=== PATIENT | male | born 1940 | race Caucasian/White ===

== ENCOUNTER → 2017-07-16 | Emergency (ER) | payer MEDICARE ==
[~2017-07-16] VITALS: Ht 180.3 cm; Wt 102.1 kg
[~2017-07-16] MED LIST: ATORVASTATIN CA20 MG PO; COLCRYS0.6 MG PO; COUMADIN5 MG PO; COUMADIN7.5 MG PO; DILTIAZEM ER180 MG PO; GLUCOPHAGE500 MG PO; SV GLUCOSAMINE PO; WARFARIN SODIUM5 MG PO; ZESTORETIC 20-1 EACH PO
--- NOTE | 2017-07-17 20:38 | EKG ---
[facility] [address] [place] [address] Signed Atrial fibrillation Prolonged QT Abnormal ECG No previous ECGs available Confirmed by BRANDAN BENSON MD ([id number]) on 07/17/2017 8:38:29 PM Electronically Signed By: BRANDAN BENSON MD 07/17/17 2038 PATIENT NAME: KRYSTIAN SALINAS Electrocardiogram DATE OF : 42 PHYSICIAN: BRANDAN BENSON MD REPORT #: [id number] REPORT IS CONFIDENTIAL AND NOT TO BE RELEASED WITHOUT AUTHORIZATION
== END ==
LOC: ED 21:36
DX: E86.0 Dehydration (principal); I10 Essential (primary) hypertension; I48.91 Unspecified atrial fibrillation; E78.5 Hyperlipidemia, unspecified; Z79.899 Other long term (current) drug therapy; Z79.01 Long term (current) use of anticoagulants; Z79.84 Long term (current) use of oral hypoglycemic drugs
CPT/HCPCS: 71010; 80053; 81001; 84484; 85025; 85610; 93005; 93010; 96361; 96374; 99284; G0480; J2405; J7030

== ENCOUNTER 2017-09-28 10:06 | Emergency (ER) | payer MEDICARE, SELFPAY ==
[~2017-09-28] VITALS: Ht 180.3 cm; Wt 102.1 kg
[2017-09-28] MEDS ORDERED: MESTINON60 MG PO (10:23)
== END 2017-09-28 10:51 | disposition home or self-care (01) ==
LOC: ED 10:06
PROC: 0HQGXZZ Repair Left Hand Skin, External Approach (ICD-10-PCS; principal; 2017-09-28)
DX: S61.412A Laceration without foreign body of left hand, initial encounter (principal); R73.03 Prediabetes; I10 Essential (primary) hypertension; Z87.891 Personal history of nicotine dependence; Z79.01 Long term (current) use of anticoagulants; Z79.84 Long term (current) use of oral hypoglycemic drugs; Z79.899 Other long term (current) drug therapy; X58.XXXA Exposure to other specified factors, initial encounter; Y93.H1 Activity, digging, shoveling and raking
CPT/HCPCS: 12001; 99282

== ENCOUNTER 2022-05-01 16:34 | Inpatient (IN) | payer OTHER, MEDICARE ==
[~2022-05-01] VITALS: Ht 177.8 cm; Wt 93.9 kg
[~2022-05-01 16:34] MED LIST changes: -ATORVASTATIN CA20 MG PO; -COUMADIN5 MG PO; -COUMADIN7.5 MG PO; -GLUCOPHAGE500 MG PO; +HYDROCODON-ACE1 EA10 PO; +JANTOVEN5 MG PO; +JANTOVEN7.5 MG PO; +LEVOTHYROXINE75 MCG PO; +LOVENOX30 MG/0.3; +MESTINON60 MG PO; +METFORMIN HCL500 MG PO; +ONDANSETRON ODT8 MG PO; +PRAVASTATIN SOD40 MG PO
[2022-05-01] MEDS ORDERED: LASIX20 MG PO (21:53)
--- NOTE | 2022-05-01 23:25 | NUR ---
REPORT RECIEVED FROM ER NURSE WILL RN. PATIENT TRANSFERED INDEPENDENTLY TO HOSPITAL BED. LUNGS CLEAR IN UPPER LOBES, DIMINISHED IN THE BASES. ON 4LPM VIA OXYMASK. SKIN INTACT. NO EDEMA NOTED. BOWEL SOUNDS PRESENT. HEART MURRMUR NOTED WITH IRREGULAR HEART RATE AND A-FIB. HR 90'S-100'S. DENIES PAIN OR SOB AT THIS TIME. ORIENTED TO ROOM AND CALL LIGHT. PATIENT VOIDED TO URINAL. EDUCATED ON 60G CARB DIET AND 160ML FLUID RESTRICTION. WRITTEN CHF EDUCATION PROVIDED.
--- NOTE | 2022-05-02 03:45 | NUR ---
PATIENT RESTING IN BED WITH EYES CLOSED. RESPIRATIONS EVEN AND UNLABORED. VS STABLE. CALL LIGHT IN REACH AND BED IN LOW POSITION.
--- NOTE | 2022-05-02 04:32 | NUR ---
PATIENT USED URINAL AT EDGE OF BED. REQUESTED PRN TYLENOL FOR HEADACHE. WATER FILLED.
--- NOTE | 2022-05-02 08:41 | NUR ---
family assessment worker and scheduled medications. Patient is alert, oriented, able to follow commands and converstaion without difficulty. Patient remains quit weak and SOB at times, but states he feels slightly better this morning compared to when he first arrived. Patient remains oxygen decreased to 2L for trial. Patient is on room air at home. Patient able to dangle and sit at edge of bed for breakfast without difficulty. Patient understands fluid restriction and is compliant. Patient denies any needs at this time. Personal items and call light within reach.
--- NOTE | 2022-05-02 09:40 | NUR ---
Completed ambulation test in room. On 2L, patient able to ambulate with minimal shortness of breath for approximately 20 feet. Oxygen turned to RA settings. Within another 20 feet, patient stated he felt short of breath. Patient returned to bed and oxygen increased back to 2L. Patient recovered to baseline before ambulation less than 1 minute and above 92%.
--- NOTE | 2022-05-02 09:53 | NUR ---
Patient educated on purpose/use of incentive spirometer while awake. Patient understands to take a minimum of 10 deep breaths per hour. Patient able to demonstrate use of IS appropriately and is agreeable to plan.
[2022-05-02] MEDS ORDERED: REFRESH TEARS15 ML OU (11:54)
--- NOTE | 2022-05-02 12:00 | NUR ---
SPOKE WITH PATIENT IN ROOM. PATIENT STATES HE IS RECENTLY . LIVES ALONE WITH HIS PET DOG FOR COMPANY. HAS 2 ADULT KIDS IN THE AREA FOR HELP IF NEEDED. HAS GOOD NEIGHBORS ALSO TO CALL IF NEEDED. HAS DME LEFT FROM . HAS RAMP, RAILS AT STEPS, WALKER, WHEELCHAIR, WALK-IN SHOWER WITH SEAT, GRAB BARS. IS NOT CONCERNED REGARDING COST OF MEDS/FOOD/UTILITIES. IS ON A PROGRAM FOR HEAT COST, HAS SNAP BENEFITS. HE STATES HE WILL PROBABLY LOOSE HIS SNAP WITH GONE, BUT ISN'T WORRIED ABOUT IT. PATIENT DRIVES. DROVE TO HOSPITAL. FAMILY OR NEIGHBORS CAN HELP WITH RIDES IF NEEDED. HE CANNOT THINK OF ANYTHING HE MAY NEED AT THIS TIME. WILL FOLLOW NEEDED.
[2022-05-02] MEDS ORDERED: LASIX20 MG PO (12:01)
--- NOTE | 2022-05-02 12:01 | NUR ---
Patient was able to eat lunch and remain within fluid restriction without difficulty. Increasing metoprolol dosage per Dr. Vines. Patient does well with IS and does this on his own without prompting. Lasix dosage given as well. Patient denies pain or any needs at this time. Personal items and call light within reach.
--- NOTE | 2022-05-02 12:04 | NUR ---
MED REC COMPLETE
--- NOTE | 2022-05-02 13:06 | NUR ---
Patient ambulated to bathroom for BM without oxygen. Oxygenation dropped to 83%. Patient placed back on 2L and recovered above 90% within less than 1 minute. Patient stated he did get winded walking from the bathroom back to bed.
--- NOTE | 2022-05-02 14:03 | NUR ---
Patient is resting comfortably in bed. Patient denies needs at this time. Personal items and call light within reach.
--- NOTE | 2022-05-02 16:19 | NUR ---
Patient resting comfortably in bed watching tv. Patient urine output is good given lasix pushes throughout day. Patient denies needs at this time. Personal items and call light within reach.
--- NOTE | 2022-05-02 18:01 | NUR ---
Patient has remained on oxygen today, but has been able to lower from 3L to 2L. Patient continues to require oxygen as he goes into the low to mid 80s on multiple room air trials. After ambulation, patient complains of shortness of breath, but again returns to baseline less than 1 minutes once at rest with 2L.
--- NOTE | 2022-05-02 20:21 | NUR ---
PATIENT REPORTS FEELING WORSE THIS EVENING. HE ENDOURSES NAUSEA AND REQUESTED A SLEEP AID. DR BENSON CONTACTED AND ORDERS REVEIVED FOR TRAMADOL. EDUCATED PATIENT ON FLUID RESTRICTION BALANCE. PATIENT VOIDED 350ML IN URINAL. CALL LIGHT IN REACH AND CAN MAKE NEEDS KNOWN.
--- NOTE | 2022-05-02 23:36 | NUR ---
PATIENT SAT UP AT BEDSIDE TO TAKE PO PILLS. REPORTS THE SLEEPING MEDICATIONS HAS REALLY HELPED. PATIENT SEEMS LESS ANXIOUS. VS STABLE. CALL LIGHT IN REACH AND PATIENT CAN MAKE NEEDS KNOWN.
--- NOTE | 2022-05-03 03:31 | NUR ---
PATIENT RESTING IN BED WITH EYES CLOSED. RESPIRATIONS EVEN AN UNLABORED. VS STABLE. CALL LIGHT IN REACH.
--- NOTE | 2022-05-03 06:17 | NUR ---
PATIENT SAT UP IN BED AND TOOK AM MEDS. REPORTS SLEEPING ALOT BETTER LAST NIGHT AND THAT HE FEELS BTTER THIS MORNING. URINAL EMPTIED. CALL LIGHT IN REACH.
--- NOTE | 2022-05-03 06:58 | NUR ---
REPORT RECEIVED FROM NIRU GAINES. AWAITING PTS ARRIVAL TO MED/SURG.
--- NOTE | 2022-05-03 07:30 | NUR ---
PATIENT MOVED TO MS 116, REPORT GIVEN DURING PREVIOUS SHIFT BY NIRU GAINES. NIRU DAY RESUMED CARE ON MS UNIT.
--- NOTE | 2022-05-03 07:49 | NUR ---
PT ARRIVED FROM CCU. PT AMBULATED TO ROOM. PT DENIES PAIN PAIN AND NAUSEA. PT DENIES SHORTNESS OF BREATH WITH AMBULATION TO ROOM. PT ALERT AND OREINTED TO ALL. IV FLUSHED AND SALINE LOCKED PER PROTOCOL, ALCOHOL CAP APPLIED. LUNG SOUNDS CLEAR IN UPPER LOBES, CRACKELS NOTED IN BILATERAL LOWER LOBES, MORE ON RIGHT THAN LEFT SIDE. PT REMAINS ON 2L O2 BY NC. ROOM AIR TRIAL ATTEMPTED, PT DROPS TO 87% ON ROOM AIR. PT MAINTAINING OXYGEN SATURATIONS OF 89-92% ON 2L O2 BY NC. PT DEMONSTRATES USE OF I.S. REACHIGN 1500-1600ML X5. ACAPELLA EDUCATION DONE. PT DEMONSRATES USE X10. TELEMETRY MONITORING SHOWS AFIB RYTHEM, WITH OCCATIONAL PVCs. HEART MURMUR HEARD. HEART RATE IN THE 80'S. NO PERIPHERAL EDEMA NOTED. CHF EDUCATION DONE WITH PT REGARDING RED/YELLOW/GREEN ZONES OF HEART FAILURE. PT VERBALIZES UNDERSTANDING STATING HE IS IN THE "YELLOW" ZONE BUT "ALMOST" TO THE GREEN. MEDCIATION GIVEN. WEIGHT RECORDED. PT REPORTS HE WAS 216 LBS AT HOME PRIOR TO ADMISSION. NO ADDITIONAL NEEDS AT THIS TIME. CALL LIGHT WITHIN REACH. BED RAILS UP. PT SITTING ON EDGE OF BED.
--- NOTE | 2022-05-03 09:55 | NUR ---
THIS RN TO ROOM TO CHECK ON PT. PT RESTING IN BED WATCHING TV. PT DENIES PAIN AND NAUSEA. 200ML CONCENTRATED YELLOW URINE EMPTIED FROM URINAL. PT DENIES ADDITIONAL REQEUSTS OR COMPLAINTS. OXYGEN SATUARTION 97% ON 2L O2 BY NC. CALL LIGHT WITHIN REACH. BED RAILS UP.
--- NOTE | 2022-05-03 11:13 | NUR ---
THIS RN TO ROOM TO CHECK ON PT. PT RESTING IN BED. OXGYEN LEVEL AT 94% ON 2L O2 BY NC. PT VISITING WITH FRIENDS/FAMILY IN THE ROOM. PT DENIES PAIN AND NAUSEA. PT DENIES SHORTNESS OF BREATH. NO ADDITIONAL REQUESTS OR COMPLAINTS. CALL LIGHT WITHIN REACH. BED RAILS UP.
--- NOTE | 2022-05-03 11:32 | NUR ---
THIS RN TO ROOM WITH DR. BENSON FOR ROUNDS. PT FINISHED VISITING WITH FRIENDS AND FAMILY. PT REPORTS HE FEELS BETTER TODAY COMPAIRED TO YESTERDAY. PT REMAINS ON 2L O2 BY NC, WITH OXGYEN SATURATION OF 90%. ROOM AIR TRIAL ATTEMPTED AGAIN, PT ONCE AGAIN DROPS TO 86%. 2L O2 BY NC RESUMED WTIH PT CLIMBING BACK TO 90-93%. PT DENIES ADDITIONAL REQUESTS OR COMPLAINTS TIME. CALL LIGHT WITHIN REACH. BED RAILS UP.
--- NOTE | 2022-05-03 12:19 | NUR ---
MEDICATION DUE. PT SITTING ON EDGE OF BED FINISHING LUNCH. PT DENIES PAIN AND NAUSEA AND SHORTNESS OF BREATH. RESPIRATIONS EVEN AND UNLABORED. OXGYEN SATURATION 93% ON 2L O2 BY NC. MEDICAITON GIVEN. IV FLUSHED AND SALINE LOCKED. AFTERNOON WATER PROVIDED. PT DENIES ADDITIONAL REQUESTS OR COMPLAINTS. CALL LIGHT Nowledge[employer]IN REACH. BED RAILS UP.
--- NOTE | 2022-05-03 13:27 | NUR ---
THIS RN TO ROOM TO CHECK ON PT. PT UP TO AMBULATE IN [place] X2 LAPS. PT STATES "OH I'M DOING A LOT BETTER THAN WHEN I CAME IN." PT REPORTS "VERY LITTLE" SHORTNESS OF BREATH WITH AMBULATION. OXGYEN SATRUATION DROPS TO 86%ON 2L O2 BY NC WTIH AMBULATION WITH HEART RATE INCREASING TO 115. PT RECOVERS ONCE BACK TO ROOM WITH IN 5 MINUTES WITH AFBI RYTHEM IN THE 90'S AND OXYGEN SATUATION OF 94% ON 2L O2 BY NC. 245ML CONCENTRATED YELLOW URINE EMPTIED FROM URINA. NO ADDITONAL REQUESTS OR COMPLAINTS. CALL LIGHT WITHIN REACH. BED RAILS UP. PT SITTING ON EDGE OF BED.
--- NOTE | 2022-05-03 14:45 | NUR ---
AFTERNOON ASSESSMENT DUE. PT RESTING IN BED. REPORTS FEELING TIRED. PT DENIES PAIN AND NASUEA. PT ALERT AND OREITNED TO ALL. PT CONTINUES TO AMBULATE WITH STAND BY ASSIST, PREFERS TO REST AT THIS TIME BUT AGREES TO WALK LATER TODAY. LUNG SOUNDS CLEAR IN LEFT UPPER LOBE WITH CRACKELS NOTES IN BILATERAL LOWER LOBES AND RIGHT UPPER LOBE. PT MAINTAINING OXGYEN SATURATION ABOVE 90% ON 2L O2 BY NC. PT DEMONSRATES USE OF I.S. REACHING 1600ML X5. OXGYENATION IMPROVES TO 96% WITH I.S. USE. PT TOLERATING FLUID RESTRICTION. HEART TONES MILDLY IRREGULAR. AFIB NOTED ON MONITOR WITH HEART RATE IN THE 80'S. ABDOMEN SOFT AND NON TENDER. NO PERIPHERAL EDEMA NOTED. HEART MURMUR UNCHANGED. PT UPDATED ON PLAN OF CARE. NO ADDITIONAL REQUESTS OR COMPLAINTS. CALL LIGHT WITHIN REACH.
--- NOTE | 2022-05-03 16:00 | NUR ---
MEDICATION DUE. THIS RN TO ROOM. PT RESTING IN BED. OXGYEN SATURATION OF 96% ON 2L O2 BY NC. PT REQUESTS TO AMBULATE WITHOUT OXGYEN. PT UP TO AMBUALTE IN [place] X1 LAP ON ROOM AIR. PT DROPS TO 86% ON ROOM AIR BUT STATES "I FEEL SO MUCH BETTER, I WOULD HAVE BEEN HUFFING AND PUFFING BEFORE I CAME IN." PT BACK TO ROOM AND PLACED BACK ON 2L O2 BY NC. OXGYEN SATURATIONS CLIMB TO 92%. ADDITIONAL 225ML OF CLEAR YELLOW URINE EMPTIED. MEDICATION GIVEN. PT DENIES PAIN AND NAUSEA. NO ADDITIONAL REQUESTS OR COMPLAINTS. CALL LIGHT WITHIN REACH. BED RAILS UP.
--- NOTE | 2022-05-03 17:35 | EKG ---
[facility] [address] [place] [address] Signed Atrial fibrillation with rapid ventricular response Nonspecific ST abnormality Abnormal ECG When compared with ECG of 23-FEB-2019 10:23, QT has shortened Confirmed by BRANDAN BENSON MD ([id number]) on 05/03/2022 5:35:41 PM Electronically Signed By: BRANDAN BENSON MD 05/03/22 1735 PATIENT NAME: KRYSTIAN SALINAS Electrocardiogram DATE OF : 42 PHYSICIAN: BRANDAN BENSON MD REPORT #: [id number] REPORT IS CONFIDENTIAL AND NOT TO BE RELEASED WITHOUT AUTHORIZATION
--- NOTE | 2022-05-03 17:38 | NUR ---
MEDICATION DUE. PT FINISHED WITH DINNER. MEDICATION GIVEN. VITAL SIGNS STABLE. PT REMAINS ON 2L O2 BY NC WITH OXYGEN SATURATION OF 90-94%. TELEMETRY DC'D PER MD ORDER. PT DEMONSTRATES USE OF I.S. REACHING 1600ML X5. NO ADDITIONAL REQUESTS OR COMPLAINTS. CALL LIGHT WITHIN REACH. BED RAILS UP.
--- NOTE | 2022-05-03 18:14 | NUR ---
MEDICATION DUE. VARIFIED BY PHARAMCY AND GIVEN PER MD ORDER. PT CONTINUES TO DENY PAIN AND NAUSEA. NO ADDITIONAL REQUESTS OR COMPLAINTS. ICE WATER REFILLED. CALL LIGHT WITHIN REACH. BED RAILS UP.
--- NOTE | 2022-05-03 18:29 | NUR ---
PT HERE FOR NEW ONSET CHF. PT UP IN ROOM INDEPENDANTLY, STEADY ON FEET AND UP TO AMBULATE IN [place] WITH STAND BY ASSIST FOR OXGYEN TANK MANAGEMENT. PT TOLERATING 60G CARB DIET AND 1600ML FLUID RESTRICTION WITH GOOD INTAKE. TELEMETRY MONITORING DC'D THIS SHIFT. METOPROLOL DOSE INCREASED FOR HEART RATE REMAINING IN THE 80-90'S. PT REMAINS ON 2L O2 BY NC, ROOM AIR TRIAL UNSUCESSFUL THIS SHIFT. LUNG SOUNDS SHOW CRACKELS IN LOWER LOBES AND OCCATIONALLY IN RIGHT UPPER LOBE. I.S. USE DEMONSTRATED. PT REPOTS SHORTNESS OF BREATH HAS BEEN IMPROVING. IV LASIX GIVEN THIS SHIFT WITH GOOD OUTPUT. PT DENIES PAIN AND NAUSEA THIS SHIFT. PT USES CALL LIGHT AND MAKES NEEDS KNOWN.
--- NOTE | 2022-05-03 21:30 | NUR ---
PATIENT REQUESTED HS SLEEPING MEDICATION, ADMINISTERED PER MAR. FULL BODY ASSESMENT DONE. PATIENT APPEARS TO BE FOLLOWING FLUID RESTRICTION WELL. NO COMPLAINTS OF PAIN. LUNG SOUNDS NOTED FINE CRACKLES THROUGHOUT. PATIENT USING IS, WAFER FLOATED TO 1600 ML. 93% ON 2L NC.
--- NOTE | 2022-05-04 | NUR ---
PATIENT APPEARS TO BE RESTING WELL. OXYGEN SATURATION 93% ON 2L NC. APPEARS TO BE BREATHING EVEN AND REGULAR.
--- NOTE | 2022-05-04 03:35 | NUR ---
PATIENT CONTINUES TO REST WELL, PROVIDED WARM BLANKET WHILE PATIENT SLEEPING. BREATHING EVEN AND REGULAR. PATIENT NODDED AT ME AND SMILED WITHOUT OPENING HIS EYES. CALL LIGHT WITHIN REACH.
--- NOTE | 2022-05-04 05:00 | NUR ---
PATIENT STOOD AT EDGE OF BED FOR STANDING WEIGHT, PATIENT STEADY ON FEET. PATIENT SITTING AT EDGE OF BED. PATIENT STATES " I DIDN'T SLEEP WELL AT ALL" REASSURED PATIENT THAT THIS NURSE HAD CHECKED ON PATIENT MULTIPLE TIMES. PATIENT GRUNTED, APPEARS ANXIOUS. CALL LIGHT WITHIN REACH.
--- NOTE | 2022-05-04 07:16 | NUR ---
REPORT RECEIVED FROM NIRU HERRON. PT RESTING IN BED ON LEFT SIDE. PT AWAKENS TO MOVEMENT IN THE ROOM. PT DENIES PAIN AND NAUSEA. OXYGEN SATURATION 92% ON 2L O2 BY NC. PT DENIES ADDITIONAL REQUESTS OR COMPLAINTS. CALL LIGHT WITHIN REACH. BED RAILS UP.
--- NOTE | 2022-05-04 09:15 | NUR ---
THIS RN TO ROOM FOR MEDICATION ADMINISTRATION. PT EATING BREAKFAST. PT DECLINES TIME UP TO CHAIR. MEDICAITON GIVEN. PT DENIES PAIN AND NASUEA. OXGYEN SATURATION 92% ON 2L O2 BY NC. NO ADDITIONAL REQUESTS OR COMPLAINTS. CALL LIGHT WITHIN REACH. BED RAILS UP.
--- NOTE | 2022-05-04 09:45 | NUR ---
PATIENT LYING IN BED AFTER MEAL. VITALS AND I/O'S COMPLETED. PT HAS NO OTHER NEEDS AT THIS TIME. CALL LIGHT WITHIN REACH.
--- NOTE | 2022-05-04 09:50 | NUR ---
MORNING ASSESSMENT DUE. PT RESTING IN BED. FINISHED WIHT BREAKFAST. PT ENCOURAGED TO GET UP TO CHAIR. PT DECLINES BUT STATES HE WOULD BE WILLING TO GO FOR A WALKE. PT UP WITH STAND BY ASSIST FOR OXYGEN TANK MANAGEMENT TO AMBULATE DOWN TO MILITARY NURSE DESK AND X1 LAP IN ARROUDN UNIT. PT ABLE TO CARRY ON CONVERSATION WHILE WALKING. PT STATES WAKING WAS "OK, BETTER THAN BEFORE I CAME IN." PT ALERT AN ORIENTD TO ALL. PT DENEIS PAIN AND NAUSEA. LUNG SOUNDS CLEAR BUT FOR MINIMAL CRACKELS IN RIGHT LOWER LOBE. ROOM AIR TRIAL ATTEMPTED AND PT DROPS TO 86% ON ROOM AIR. PT REMAINS ON 2L O2 BY NC. PT DEMONSTRATES USE OF I.S. REACHING 1250ML. NO COUGH NOTED. HEART TONES UNCHANGED WITH MURMUR AND IRREGULAR RATE. VERY MILDY IRREGULAR. HEART RATE IN THE 90'S. PT DEMONSTRATES UNDERSTANDING OF GREEN/YELOW/RED ZONES OF HEART FAILURE BY STATING HE IS IN THE "YELLOW, ALMOST GREEN" ZONE TODAY. PT FILLS OUT RECORD SHEET WITH STAND BY ASSTANCE. PT UP TO CHAIR WITH STAND BY ASSIST. NO ADDITIONAL NEEDS AT THIS TIME. CALL LIGHT WITHIN REACH.
--- NOTE | 2022-05-04 10:04 | NUR ---
PATIENT SITTING UP IN CHAIR AFTER MEAL. VITALS AND I/O'S COMPLETED. PT HAS NO OTHER NEEDS AT THIS TIME. CALL LIGHT IS WITHIN REACH.
--- NOTE | 2022-05-04 10:34 | NUR ---
THIS RN TO ROOM WITH MD FOR ROUNDS. PT REMAINS UP TO CHAIR. PLAN OF CARE REVIEWED WITH PT AND PT VERBALIZES UDNERSTANDING. PT REMAINS ON 2L O2 BY NC WITH OXGYEN SATURATION OF 96% ON 2L O2 BY NC. PT DENIES PAIN AND NAUSEA. NO ADDITIONAL REQUSTS OR COMPLAINTS. CALL LIGHT AND BELONGINGS WITHIN REACH.
--- NOTE | 2022-05-04 11:14 | NUR ---
MEDICATION DUE. THIS RN TO ROOM. PT UP TO CHAIR. DENIES PAIN AND NAUSEA. MEDICATION GIVEN. NO ADDITIONAL REQUESTS OR COMPLAINTS. CALL LIGHT WITHIN REACH.
--- NOTE | 2022-05-04 12:25 | NUR ---
THIS RN TO ROOM TO CHECK ON PT. PT REAMINS UP TO CHAIR. FINISHED WITH LUNCH. PT STATES HE WAS UP TO RESTROOM AND HAD A BOWEL MOVEMENT THAT WAS NORMAL FOR HIM WELL A MISSED VOID. PT DENIES PAIN AND NAUSEA. OXGYEN SATURATION OF 95% ON 2L O2 BY MADAI. REPORT GIVEN TO NIRU OLSEN WHO IS ASSUMING CARE OF PT. PT INTRODUCED TO [facility]. NO ADDITIONAL NEEDS AT THIS TIME. CALL LIGHT WITHIN REACH.
--- NOTE | 2022-05-04 13:18 | NUR ---
PATIENT SITTING WITH GRANDAUGHTER IN CHAIR AFTER MEEAL. VITALS AND I/O'S COMPLETED. CALL LIGHT WITHIN REACH.
--- NOTE | 2022-05-04 14:04 | NUR ---
up in chair, 2LNC, dim lung sounds, coop with assessment. pleasant, alert and orineted. leges up, home soft knee brace R knee. SL patent. no c/o pain. visiting with family.
--- NOTE | 2022-05-04 15:44 | NUR ---
RECEIVED LASIX EARLIER, IN BED EYES CLOSED, O2 2LNC, SPOT CHECKS 92% SATS. CALL LIGHT AT HANDS REACH
--- NOTE | 2022-05-04 17:26 | NUR ---
Pt continues to beon 2LNC O2. Primary RN earlier on shift tried to wean off to room air, failed, low sats and sob, Back on 2L, sats 90-92% when sitting or walking or sleeping. independent in room, 1pa w O2 when ambulating in hallways. tolerated well with O2. gets Lasix IV and received Coumadin 5mg po, voiding QS . coop with fluid restriction. no c/o pain this shift. Home soft R knee brace in place. elevated when up in chair. no c/o R eye pain or vision changes. SL patent. cont w pox, alert oriented, pleasant and coop. uses call light.
--- NOTE | 2022-05-04 20:00 | NUR ---
1899 BEDSIDE REPORT FROM [facility] MARRUFO. 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 PATIENT REQUESTING SLEEPING MEDICATION TO BE ADMINISTERED AT 1999. PATIENT STATED " THAT'S MY BEDTIME AND I REALLY WANT TO GET A GOOD NIGHTS REST" 1999 ADMINISTERED TRAZADONE 25 MG PO PER OCT. FULL BODY ASSESMENT DONE. NOTED CRACKLES AND CORSENESS ON ALL LOBES ON RIGHT SIDE AND CRACKLES IN BASES ON LEFT SIDE. PATIENT APPEARS TO BE FOLLOWING FLUID RESTRICTION WELL. PROVIDED PATIENT WITH 150 ML OF FLUID IN CUP. NO OTHER NEEDS AT THIS TIME. CALL LIGHT WITHIN REACH.
--- NOTE | 2022-05-04 21:00 | NUR ---
INTO ROOM TO CHECK ON PATIENT, PATIENT LAYING SIDEWAYS IN BED WITH OXYGEN OFF. STATES " I WENT TO THE BATHROOM AND FELT VERY DIZZY LIKE I WAS GOING TO PASS OUT" CHECKED BP 93/65, OXYGEN SATURATION 85% ON ROOM AIR. VERBALIZED TO PATIENT THAT HE NEEDS TO HAVE STAFF STBY TO THE BATHROOM, AND TO CALL BEFORE GETTING UP. PATIENT VERBALIZED WILLINGNESS AND UNDERSTANDING. BED ALARM PLACED AND PATIENT PUT ON CPOX ON TELE FOR CLOSER MONITORING. CALL TO DR. BENSON TO NOTIFIY OF INCIDENT. NO NEW ORDERS, CONTINUE TO MONITOR.
--- NOTE | 2022-05-05 00:45 | NUR ---
PATIENTS BED ALARM ALERTED STAFF. PATIENT ASSISTED TO THE BR A SBA. PATIENT DENIED BEING LIGHT HEADED OR DIZZY. PATIENT ABLE TO VOID. PATIENT IS BACK IN BED RESTING. PATIENT IS ON 4L VIA NC. PATIENT DENIES ANY FURTHER NEEDS CALL LIGHT IN REACH. BED ALARM ON FOR SAFETY.
--- NOTE | 2022-05-05 01:25 | NUR ---
PATIENT APPEARS TO BE REMOVING OXYGEN IN SLEEP, SATURATIONS DROP TO 85-88% INTO ROOM TO PLACE OXYGEN BACK ON, CHANGED TO OXIMASK. PATIENT STATES " ARE YOU GOING TO LET ME SLEEP TONIGHT?" REASSURED PATIENT THAT OXYGEN HAS TO STAY IN PLACE TO PROVIDE GOOD OXYGENATION WITH HIS CURRENT ACUTE ILLNESS. PATIENT VERBALIZED UNDERSTANDING AND APPEARED TO CLOSE EYES. BED ALARM ON. CALL LIGHT WITHIN REACH. WITH 2L AND OXIMASK 02 SATURATION 97% NOTED WHEN PATIENT SLEEPING APPEARS TO SNORE LOUDLEY, AND HAVE PERIODS OF APNIC BREATHING. REASSESED OLGA LIDIA SCORE. ON ADMIT OLGA LIDIA SCORE WAS 2, AND NOW WITH REASSEMENT OLGA LIDIA SCORE IS 6.
--- NOTE | 2022-05-05 02:49 | NUR ---
CHECKED PATIENT. PATIENT IS LYING IN BED AWAKEN WHEN THIS ROADWAY TECHNICIAN ENTERED THE ROOM. PATIENT DENIES ANY NEEDS AT THIS TIME. BED ALARM ON PER ACCOUNTING COORDINATOR.
--- NOTE | 2022-05-05 06:10 | NUR ---
PATIENT HAD AN ISOLATED EVENT AFTER ADMINISTRATION OF TRAZADONE PER OCT, WAS UP IN WITHOUT OXYGEN ON AND HAD BECOME DIZZY. PATIENT INSTRUCTED TO CALL BEFORE GETTING UP SO STAFF CAN BE WITH HIM. PATIENT PLACED ON CPOX TELE TO MONITOR OXYGEN SATURATION, PATIENT HAD REMOVED OXYGEN IN SLEEP MULTIPLE TIMES THROUGHOUT NIGHT AND DESAT TO LOW 80% ON RA. PATIENT VERBALIZED FRUSTRATION STATING " I DID NOT SLEEP WELL" VOIDING QUANTITY SUFFICIENT.
--- NOTE | 2022-05-05 07:38 | NUR ---
REPORT FROM BAKARI HERRON RN.
--- NOTE | 2022-05-05 08:36 | NUR ---
PATIENT HAS HAD ECHO DONE THIS MORNING. PATIENT IS SITTING UP AT THE SIDE OF THE BED, DENIES PAIN OR NAUSEA AND IS AWAITING BREAKFAST. PATIENT IS WEARING 2L 02 TO MAINTAIN SATS, AND DENIES HAVING HOME O2. PATIENT WOULD LIKE TO AMBULATE IN THE HALLWAY AFTER BREAKFAST.
--- NOTE | 2022-05-05 11:13 | NUR ---
[place], REGULATORY CONSULTANT, IN TO SEE PATIENT.
--- NOTE | 2022-05-05 11:30 | NUR ---
Notified by Dr. Gonzalez, plan to dc pt today. He will enter an 02 qualifier. My printer is down and Rn will let me know when completed.
--- NOTE | 2022-05-05 11:45 | NUR ---
Certified Heart Failure Nurse Notes: Diagnosis: acute on probable chronic heart failure, Afib, hypertension Rehab Aide - not at this time PCP: Naye Lopez Admit Pro BNP: [id number] Social support system: Spouse this spring. Daughter is supportive and sees patient often. Weight monitoring: Scale present in home. Identifies how to weigh daily/ identifies when to notify PCP Symptom management: Addressed monitoring and reporting changes in weight or symptoms utilizing Zones form. Transportation mode:Drives own car. Can ask neighbors to assist PRN. Diet: Usual meals include home cooked meals, soups for lunch. Recently has been so tired he has been using frozen dinners. He recognizes that those may not be the best option at this time. Dines out several times per week with family. Discussed best types of items to order and eating smaller portions. Demonstrates label reading abilities Tobacco: former Advanced directive: Not discussed at this initial visit Recommendations prior to discharge: Document ambulation oxygen saturations prior to discharge Absence of orthostatic hypotension. Discharge weight less than admit weight. Discharge BNP less than admit (as per [facility] Heart Failure DC Bundle) Barriers to self-care include: Knowledge deficit. Current oxygen saturation. Self-Management Goal: Near term goal is to go to [facility] this week for family visit and fly to see brother on . Follow-up plans: Patient agrees to receive a follow up call from this service. Patient does not currently qualify for cardiac rehabilitation but would be welcome for complimentary outpatient heart failure education. I will call the PCP office to ensure a follow up appointment the week of May 12 since patient is planning on being out of town,if stable, the rest of this week. Pt has [facility] Heart Failure bundle folder-[facility] My Action Plan Living Well with Heart Failure book, Daily weight and symptom monitoring log, Zones magnet Teaching materials given today: [facility] contact information Low Sodium Shopping list. Lower sodium dining list, and better frozen meal options.
--- NOTE | 2022-05-05 13:06 | NUR ---
PATIENT TO HAVE RESPIRATORY HOME O2 QUALIFIER, POSSIBLY D/C HOME TODAY.
--- NOTE | 2022-05-05 14:27 | NUR ---
RT CALLED ABOUT REVIEWING HOME OXYGEN QUALIFIER.
--- NOTE | 2022-05-05 14:30 | NUR ---
Faxed qualifyer to [place] at pts request. Updated, I am awaiting dc summary and will send when completed.
[2022-05-05] MEDS ORDERED: METOPROLOL SUC200 MG PO (14:33)
[2022-05-05] MEDS ORDERED: FUROSEMIDE40 MG PO (14:35)
--- NOTE | 2022-05-05 15:12 | NUR ---
AFTERNOON WARFARIN GIVEN. DISCUSSED EDUCATION ABOUT HOME OXYGEN. PATIENT RESTING IN BED WATCHING TV AND STATES NO ADDITIONAL NEEDS.
--- NOTE | 2022-05-05 15:20 | NUR ---
Called Jeferson from [facility] and updated, [place] best orders are for 02 on pulse as this will make his tanks last longer. Pt needs 02 for activity only. He will deliver the tanks and concentrator in 1/5 hrs. Pt is ok to dc to home on a tank for pulse. Dr. Vines updated and orders written and faxed to [place] with dc summary. Rn notified pt can dc to home and pt put tank on pulse.
== END 2022-05-05 16:33 | disposition home or self-care (01) | DRG 291 ==
LOC: ED 16:34 → CCU 23:06 → MS 05-03 06:24
PROVIDERS: ADMIT Internal Medicine; ATTEND Internal Medicine
DX: I11.0 Hypertensive heart disease with heart failure (principal); I50.33 Acute on chronic diastolic (congestive) heart failure; J96.21 Acute and chronic respiratory failure with hypoxia; I48.21 Permanent atrial fibrillation; J84.9 Interstitial pulmonary disease, unspecified; Z20.822 Contact with and (suspected) exposure to COVID-19; E03.9 Hypothyroidism, unspecified; I08.0 Rheumatic disorders of both mitral and aortic valves; E11.9 Type 2 diabetes mellitus without complications; Z91.040 Latex allergy status; E78.5 Hyperlipidemia, unspecified; Z87.891 Personal history of nicotine dependence; Z79.01 Long term (current) use of anticoagulants; E83.42 Hypomagnesemia; Z79.84 Long term (current) use of oral hypoglycemic drugs; Z79.899 Other long term (current) drug therapy
CPT/HCPCS: 36415; 71045; 71250; 80048; 80053; 83036; 83735; 83880; 84484; 85025; 85610; 87502; 93005; 93010; 93306; 94667; 94668; 94760; 94761; 94762; 96374; 96375; 99285-25; A9270; C9803; J1815; J1940; J2405; J3475; U0003

== ENCOUNTER 2024-04-05 15:12 | Emergency (ER) | payer OTHER, MEDICARE ==
[~2024-04-05] VITALS: Ht 177.8 cm; Wt 97.5 kg
[~2024-04-05 15:12] MED LIST changes: +ALLOPURINOL100 MG PO; +FUROSEMIDE40 MG PO; +LASIX20 MG PO; +METOPROLOL SUC200 MG PO; +REFRESH TEARS15 ML OU
[2024-04-05] MEDS ORDERED: ELIQUIS2.5 MG PO (15:27)
[2024-04-05 16:13] LABS: BASOPHILS 0.9 % (0-2); EOSINOPHILS 0.9 % (0-6); HEMATOCRIT 39.3 % (35.0-50.0); HEMOGLOBIN 13.2 g/dL (12.0-18.0); LYMPHOCYTES 29.6 % (24-44); MCH 32.2 (27-36); MCHC 33.6 g/dl (30-36); MCV 95.9 fl (81-99); MONOCYTES 7.5 % (0-12); NEUTROPHILS 61.1 % (39-80); PLATELET COUNT 158 K/uL (140-440); RDW 14.4 (10.5-15.0)
[2024-04-05 16:35] LABS: ALBUMIN 3.5 g/dL (3.4-5.0); ALBUMIN/GLOBULIN RATIO 1.09 (1.1-2.4); ANION GAP 10.6 (7-21); BILIRUBIN, TOTAL 0.4 ng/dL (0.2-1.0); BUN/CREATININE RATIO 16.07 (6.0-28.6); CALCIUM 8.8 mg/dL (8.5-10.1); CREATININE, SERUM 1.12 mg/dL (0.70-1.30); POTASSIUM 3.6 mmol/L (3.5-5.1); PROTEIN, TOTAL 6.7 g/dL (6.4-8.2)
[2024-04-05 17:05] VITALS: BP 118/75
--- NOTE | 2024-04-06 21:23 | EKG ---
[facility] [address] [place] [address] Signed Atrial fibrillation with a competing junctional pacemaker Right bundle branch block Abnormal ECG When compared with ECG of 01-MAY-2022 17:59, Vent. rate has decreased BY 40 BPM Right bundle branch block is now present Confirmed by Pedro Pablo Bliss MD ([id number]) on 04/06/2024 9:22:54 PM Electronically Signed By: PEDRO PABLO BLISS MD 04/06/[id number] PATIENT NAME: KRYSTIAN SALINAS Electrocardiogram DATE OF : 42 PHYSICIAN: PEDRO PABLO BLISS MD REPORT #: [id number] REPORT IS CONFIDENTIAL AND NOT TO BE RELEASED WITHOUT AUTHORIZATION
== END 2024-04-05 17:05 | disposition home or self-care (01) ==
LOC: ED 15:12
PROVIDERS: Emergency Medicine
DX: I11.0 Hypertensive heart disease with heart failure (principal); I50.9 Heart failure, unspecified; E78.5 Hyperlipidemia, unspecified; I48.91 Unspecified atrial fibrillation; Z79.890 Hormone replacement therapy; Z79.84 Long term (current) use of oral hypoglycemic drugs; Z79.01 Long term (current) use of anticoagulants; Z87.891 Personal history of nicotine dependence; Z91.048 Other nonmedicinal substance allergy status
CPT/HCPCS: 36415; 71045; 80053; 83880; 84484; 85025; 93005; 93010; 99285-25